=== PATIENT | male | born 1990 | race Caucasian/White ===

== ENCOUNTER 2017-10-30 18:12 | Emergency (ER) | payer BC ==
[2017-10-30] MEDS: HYDROCODONE/APAP (10/325) TAB PO (22:07)
== END 2017-10-30 23:46 | disposition home or self-care (01) ==
LOC: FTE 18:12
DX: S99.911A Unspecified injury of right ankle, initial encounter (principal); S99.921A Unspecified injury of right foot, initial encounter; W23.1XXA Caught, crushed, jammed, or pinched between stationary objects, initial encounter; Y92.89 Other specified places as the place of occurrence of the external cause
CPT/HCPCS: 73590; 73610-RT; 73630; 99283-25

== ENCOUNTER → 2019-02-23 | Emergency (ER) | payer BC | END | disposition home or self-care (01) | LOC: FTE 08:29 | DX: H61.22 Impacted cerumen, left ear (principal) | CPT/HCPCS: 69209; 99283-25 ==